=== PATIENT | female | born 1995 | race Two or more races ===

== ENCOUNTER 2023-07-03 16:02 | Emergency (ER) | payer BC ==
[~2023-07-03] VITALS: Ht 165.1 cm; Wt 68.0 kg
[2023-07-03 16:31] VITALS: BP 128/82; TEMP 98.3; O2SAT 97
== END 2023-07-03 19:40 | disposition home or self-care (01) ==
LOC: ER 16:16
DX: J98.8 Other specified respiratory disorders (principal)
CPT/HCPCS: 71045-TC